=== PATIENT | female | born 1985 ===

== ENCOUNTER 2024-01-07 07:10 | Inpatient (IN) | payer OTHER ==
[2023-12-25 10:15] LABS: PH,URINE 6.5 (5.0-8.0); URINE APPEARANCE Turbid; URINE BILIRRUBIN Negative (NEGATIVE); URINE BLOOD Negative; URINE COLOR Yellow; URINE GLUCOSE Negative (NEGATIVE); URINE LEUKOCYTE Small; URINE NITRATE Negative; URINE PROTEIN Negative (NEGATIVE)
[2023-12-25 10:19] LABS: URINE BACTERIA 2678.4 uL (0.0-1933); URINE EPITHELIAL CELLS 23.9 uL (0.0-38.8); URINE RBC 2.4 uL (0.0-20.8); URINE WBC 106.8 uL (0.0-23.2)
[2023-12-25 10:32] LABS: HEMATOCRIT 35.5 % (36.0-45.00); HEMOGLOBIN 12.2 g/dL (12.0-15.00); MEAN CORPUSCULAR HEMOGLOBIN 29.6 pg (27.00-32.0); MEAN CORPUSCULAR HGB CONC 34.3 g/dl (32.0-36.0); PLATELET COUNT 262 K/uL (150-450); RED BLOOD COUNT 4.13 M/uL (4.00-6.00); RED CELL DISTRIBUTION WIDTH 13.6 % (11.5-14.5)
[2023-12-25 10:54] LABS: ALBUMIN 3.7 gm/dL (3.4-5.0); BILIRUBIN TOTAL 0.91 mg/dL (0.3-1.2); CREATININE SERUM 0.7 mg/dL (0.55-1.02); GFR 93.65; GLOBULINA 3.9 G/DL (2.4-3.5); POTASSIUM 4.36 mEq/L (3.5-5.1); TOTAL PROTEIN 7.6 gm/dL (6.4-8.2)
[2023-12-25 10:55] LABS: INR 0.99; PARTIAL THROMBOPLASTIN TIME 25.5 SECONDS (22.0-34.0); PROTHROMBIN TIME 10.4 SECONDS (9.0-11.5)
[~2024-01-07] VITALS: Ht 144.8 cm; Wt 97.5 kg
[2024-01-07] MEDS ORDERED: DEXAMETHASONE SODIUM PHOSPHATE 4 MG/ML VIAL IV ONE (10:45)
[2024-01-07] MEDS ORDERED: ONDANSETRON HCL 2 MG/ML VIAL IV PRN (15:15)
[2024-01-07] MEDS ORDERED: ENALAPRILAT DIHYDRATE 1.25 MG/ML VIAL IV PRN (15:15)
[2024-01-07] MEDS ORDERED: CYCLOBENZAPRINE HCL 5 MG TABLET PO SCH (17:00)
[2024-01-07] MEDS ORDERED: ACETAMINOPHEN 500 MG GEL..CAP PO SCH (17:00)
[2024-01-07] MEDS ORDERED: TRAMADOL HCL 50 MG TABLET PO SCH (18:00)
== END 2024-01-08 14:11 | disposition home or self-care (01) | DRG 627 ==
LOC: CIR.AMB 07:10 → O/R 15:41 → SURH 15:41
PROVIDERS: ADMIT Otolaryngology; ATTEND Otolaryngology
PROC: 0GBN0ZZ Excision of Right Inferior Parathyroid Gland, Open Approach (ICD-10-PCS; principal; 2024-01-07 12:30)
DX: D35.1 Benign neoplasm of parathyroid gland (principal); Z20.822 Contact with and (suspected) exposure to COVID-19